=== PATIENT | female | born 1990 | race Caucasian/White ===

== ENCOUNTER 2016-12-16 06:15 | Inpatient (IN) | payer OTHER ==
[~2016-12-16] VITALS: Ht 160 cm; Wt 80.7 kg
[2016-12-16] VITALS (101 sets, daily range): BP systolic 94–144; BP diastolic 49–97; PULSE 81–255; RESP 16–22; TEMP 97.6–99.1; O2SAT 96–99
[~2016-12-16 06:15] MED LIST: AMOX500T2 PO; MMW SS; Z.0.BCPILL PO; ZITH250T PO
[2016-12-16 07:45] LABS: AUTOMATED NEUTROPHIL # 13.3 TH/MM3 (1.8-7.7); BASOPHIL % 0.2 % (0.0-2.0); EOSINOPHIL # 0.1 TH/MM3 (0-0.4); EOSINOPHIL % 0.5 % (0.0-4.0); HEMATOCRIT 35.5 % (35.0-46.0); HEMO FLAGS DIFF FINAL; LYMPH % 13.9 % (9.0-44.0); LYMPHOCYTE # 2.3 TH/MM3 (1.0-4.8); MEAN CELL VOLUME 76.4 FL (80.0-100.0); MEAN CORPUSCULAR HEMOGLOBIN 24.6 PG (27.0-34.0); MEAN CORPUSCULAR HGB CONC 32.3 % (32.0-36.0); NEUT % 80.4 % (16.0-70.0); PLATELET COUNT 280 TH/MM3 (150-450); RED BLOOD COUNT 4.65 MIL/MM3 (4.00-5.30); RED CELL DISTRIBUTION WIDTH 15.5 % (11.6-17.2); WHITE BLOOD COUNT 16.6 TH/MM3 (4.0-11.0)
[2016-12-16 07:47] LABS: BACTERIA, URINE RARE /hpf; BLOOD, URINE SMALL (NEG); COMMENT (UR) CULT NOT INDICATED; CULTURE IF INDICATED CULT NOT INDICATED; GLUCOSE,URINE NEG (NEG); KETONE, URINE NEG (NEG); MUCUS URINE FEW /lpf (OCC); NITRITE,URINE NEG (NEG); PH, URINE 6.5 (5.0-8.5); SQUAMOUS EPITHELIAL CELL URINE 3 /hpf (0-5); URINE COLOR YELLOW (YELLW/STRAW)
[2016-12-16] MEDS ORDERED: NS 1000 ML IV PRN (08:15)
[2016-12-16] MEDS ORDERED: PENICILLIN G POT 5,000,000 UNITS/NS 100 ML (Mini-Bag Plus) IV ONE ×2 (08:15)
[2016-12-16] MEDS ORDERED: LIDOCAINE HCL 1% 50 ML VIAL SQ PRN (08:15)
[2016-12-16] MEDS ORDERED: LACTATED RINGER'S 1000 ML BOLUS IV PRN (08:15)
[2016-12-16] MEDS ORDERED: NS 500 ML BOLUS IV PRN (08:15)
[2016-12-16] MEDS ORDERED: MINERAL OIL 10 ML VIAL TOPICAL PRN (08:15)
[2016-12-16] MEDS ORDERED: OXYTOCIN 30 UNITS 500ML PREMIX IV ONE (08:15)
[2016-12-16] MEDS ORDERED: CITRIC ACID-SODIUM CITRATE LIQ 30 ML UDC PO SCH (08:15)
[2016-12-16] MEDS ORDERED: LIDOCAINE HCL 1% 50 ML VIAL I-DERMAL PRN (08:15)
[2016-12-16] MEDS: LACTATED RINGER'S 1000 ML IV SCH ×2 (08:17→13:26)
[2016-12-16] MEDS ORDERED: OXYTOCIN 30 UNITS/NS 500ML PREMIX IV SCH (09:15)
[2016-12-16] MEDS ORDERED: fentaNYL 2MCG-BUPIV 0.125% INJ 100 ML ONE (12:02)
[2016-12-16] MEDS: PENICILLIN G POT 2,500,000 UNITS/NS 100 ML IV SCH ×4 (13:26→16:57)
[2016-12-16] MEDS ORDERED: fentaNYL 2MCG-BUPIV 0.125% 100 ML EPIDURAL SCH (13:45)
[2016-12-16] MEDS ORDERED: ePHEDrine/NS 25 MG/5 ML SYR IV PRN (13:45)
[2016-12-16] MEDS ORDERED: NO SYSTEM NARCOTICS PRN (13:45)
[2016-12-16] MEDS ORDERED: DO NOT ADMINISTER ANTICOAGULANTS PRN (13:45)
[2016-12-16] MEDS ORDERED: ceFAZolin INJ 1,000 MG VIAL ONE (17:46)
[2016-12-16] MEDS ORDERED: OXYTOCIN 10 UNIT/ML AMP ONE (17:46)
[2016-12-16] MEDS ORDERED: EPIDURAL-NO SYSTEMIC NARCOTICS PRN (18:30)
[2016-12-16] MEDS ORDERED: EPIDURAL-DO NOT ADMINISTER ANTICOAGULANTS PRN (18:30)
[2016-12-16] MEDS ORDERED: EPIDURAL-NALOXONE HCL 0.4 MG/ML AMP IV PRN (18:30)
[2016-12-16] MEDS ORDERED: EPIDURAL-DIPHENHYDRAMINE HCL 50 MG CAP PO PRN (18:30)
[2016-12-16] MEDS ORDERED: EPIDURAL-DIPHENHYDRAMINE HCL 50 MG/ML VIAL IV PUSH PRN (18:30)
[2016-12-16] MEDS ORDERED: ACETAMINOPHEN 1000 MG/100 ML VIAL IV ONE (19:01)
[2016-12-16] MEDS ORDERED: DICLOFENAC SODIUM 37.5 MG/ML VIAL IV PUSH ONE (19:02)
[2016-12-16] MEDS ORDERED: ONDANSETRON HCL 4 MG/2 ML VIAL ONE (19:18)
[2016-12-16] MEDS ORDERED: MORPHINE SULFATE 4 MG/ML INJ ONE (19:18)
[2016-12-16] MEDS ORDERED: MORPHINE SULFATE PF 5 MG/10 ML VIAL ONE (19:18)
[2016-12-16] MEDS ORDERED: ONDANSETRON HCL 4 MG/2 ML VIAL IV PUSH PRN (19:30)
[2016-12-16] MEDS ORDERED: OXYTOCIN 30 UNITS-500ML PREMIX 500 ML IV ONE ×2 (19:30)
[2016-12-16] MEDS ORDERED: SODIUM CHLORIDE 0.9% FLUSH 10 ML FLUSH IV FLUSH PRN (19:30)
[2016-12-16] MEDS: LACTATED RINGER'S 1000 ML INJ 1,000 ML IV SCH (19:39)
[2016-12-16] MEDS ORDERED: SODIUM CHLORIDE 0.9% FLUSH 10 ML FLUSH IV FLUSH SCH (21:00)
[2016-12-17 01:30] VITALS: BP 118/70; PULSE 108; RESP 18; TEMP 98
[2016-12-17] MEDS: LACTATED RINGER'S 1000 ML INJ 1,000 ML IV SCH (01:41)
[2016-12-17 05:30] VITALS: BP 114/68; PULSE 111; RESP 18; TEMP 99
[2016-12-17] MEDS ORDERED: OXYTOCIN 30 UNITS-500ML PREMIX 500 ML IV PRN (05:30)
[2016-12-17 05:58] LABS: AUTOMATED NEUTROPHIL # 19.8 TH/MM3 (1.8-7.7); BASOPHIL % 0.1 % (0.0-2.0); EOSINOPHIL % 0.1 % (0.0-4.0); HEMATOCRIT 24.2 % (35.0-46.0); HEMO FLAGS DIFF FINAL; LYMPH % 5.9 % (9.0-44.0); LYMPHOCYTE # 1.3 TH/MM3 (1.0-4.8); MEAN CELL VOLUME 76.1 FL (80.0-100.0); MEAN CORPUSCULAR HEMOGLOBIN 25.4 PG (27.0-34.0); MEAN CORPUSCULAR HGB CONC 33.4 % (32.0-36.0); MONO % 5.1 % (0.0-8.0); NEUT % 88.8 % (16.0-70.0); PLATELET COUNT 210 TH/MM3 (150-450); RED BLOOD COUNT 3.19 MIL/MM3 (4.00-5.30); RED CELL DISTRIBUTION WIDTH 15.2 % (11.6-17.2); WHITE BLOOD COUNT 22.3 TH/MM3 (4.0-11.0)
[2016-12-17] MEDS: oxyCODONE/ACETAMINOPHEN 5 MG/325 MG TAB PO PRN ×4 (06:11→20:16)
[2016-12-17] MEDS: IBUPROFEN 600 MG TAB PO PRN ×3 (06:11→20:15)
[2016-12-17 08:00] VITALS: BP 116/64; PULSE 125; RESP 14; TEMP 98.9
[2016-12-17 11:07] VITALS: BP 111/67; PULSE 140; RESP 18; TEMP 98.3
[2016-12-17 13:00] VITALS: BP 106/61; PULSE 109; RESP 16; TEMP 98.1
--- NOTE | 2016-12-17 13:28 | MP ---
cc: Ortiz MAGALLANES DATE OF SURGERY 12/16/2016 PREOPERATIVE DIAGNOSIS 1. Failure to progress 2. Intrauterine at term. POSTOPERATIVE DIAGNOSIS 1. Failure to progress 2. Intrauterine at term. PROCEDURE Primary low transverse section ANESTHESIA Epidural SURGEON Ortiz Magallanes MD FINDINGS A healthy male . Normal uterus, normal tubes, normal ovaries, normal cul-de-sacs anterior and posterior. Normal viable male with a weight 9 pounds 4 ounces, 's 9/9. COMPLICATIONS None COUNTS Correct ESTIMATED BLOOD LOSS 500 cc FLUIDS Crystalloid CONDITION The patient tolerated the procedure well and went to the recovery room in good condition. INDICATIONS FOR THE PROCEDURE This lady came in the morning at 3 cm. We ruptured her membranes and began to augment her labor. She moved to 4 cm fairly well. She had several decelerations which were several minutes long, however, one was right after the epidural. The second one we stopped the Pitocin and then restarted it. For the last six hours. she moved her cervix 1 cm despite fairly adequate contractions. She did have a dysfunctional pattern. After discussion of the risks and benefits of a section and because she had not moved her cervix and she began becoming warm inside, I was concerned about infection, we decided to proceed with the . PROCEDURE IN DETAIL The patient was taken to the operating room, identified by name band and verbally. The time out was done and patient was prepped and draped in the usual sterile fashion for section. A Pfannenstiel incision was made, carried down to the fascia. The fascia was taken off the rectus muscle by blunt and sharp dissection. The rectus muscles were spread bluntly and the peritoneum entered under direct vision without difficulty. The incision was extended and a bladder blade was placed. A bladder flap was created in the usual fashion and the uterus was incised transversely along the lower uterine segment. Once the uterine cavity was entered, clear fluid was noted. The baby's head was very low in the pelvis after pushing for two hours and the vertex was grasped. With fundal pressure, we could not quite get the head to deliver, so we used a suction device which the baby delivered easily. The hypopharynx and nasopharynx were suctioned and the remainder of the was delivered without difficulty. The cord doubly clamped and cut and handed to the resuscitation team who was present. The cord blood was obtained and the placenta was delivered manually. The uterus was curettaged twice with a wet lap and the uterine incision was repaired with 0 Vicryl in a running locking fashion in two layers, the second layer imbricating the first. Once this had been accomplished, all incisions were carefully inspected. Hemostasis was excellent. The uterus was delivered back into the abdomen and the gutters were cleaned of blood and debris. The rectus muscles were reapproximated with 0 Vicryl in a running fashion and the fascia was repaired with 0 Vicryl in a running fashion bilaterally. The subcu was repaired with two layers of 3-0 Vicryl and the skin was repaired with a 4-0 Monocryl in a subcuticular fashion. The wound was sterilely dressed. She tolerated the procedure well and went to the recovery room in satisfactory condition. R. MD ELIAN Delgado/SEMAJ /7:29 PM /1:26 PM
--- NOTE | 2016-12-17 13:33 | HHI.OB ---
Subjective Post Operative Day: 1 Objective Vitals/I&O Vital Signs Date Time Temp Pulse Resp B/P Pulse Ox O2 Delivery O2 Flow Rate FiO2 12/17/16 11:07 98.3 140 18 111/67 12/17/16 08:00 98.9 125 14 116/64 12/17/16 05:30 99.0 111 18 114/68 12/17/16 01:30 108 18 118/70 12/17/16 01:30 98.0 12/16/16 22:00 99.1 12/16/16 22:00 103 16 123/64 12/16/16 20:30 98.2 12/16/16 20:30 102/58 12/16/16 20:29 96 12/16/16 20:27 97 12/16/16 20:27 19 12/16/16 20:08 110 20 108/61 96 12/16/16 19:56 114 12/16/16 19:56 22 97 12/16/16 19:55 108/65 12/16/16 19:42 119 20 107/65 99 12/16/16 19:22 99 12/16/16 19:21 115 18 106/56 12/16/16 19:21 97.9 12/16/16 17:40 131 12/16/16 17:35 127 12/16/16 17:30 115 131/79 12/16/16 17:30 109 12/16/16 17:25 106 12/16/16 17:20 112 12/16/16 17:15 108 12/16/16 17:10 114 12/16/16 17:05 118 12/16/16 17:00 134 12/16/16 17:00 121 144/78 12/16/16 16:55 107 12/16/16 16:53 18 12/16/16 16:50 102 12/16/16 16:45 103 12/16/16 16:41 100 130/67 17 16:40 117 17 16:35 111 17 16:30 106 123/76 17 16:30 108 17 16:25 111 17 16:20 113 17 16:15 118 17 16:10 109 12/16/16 16:05 114 12/16/16 16:03 18 12/16/16 16:02 105 128/77 12/16/16 16:00 112 12/16/16 15:58 99.0 12/16/16 15:55 106 12/16/16 15:50 104 12/16/16 15:45 105 12/16/16 15:40 110 12/16/16 15:35 104 12/16/16 15:30 105 115/61 12/16/16 15:30 107 12/16/16 15:25 100 12/16/16 15:20 114 12/16/16 15:15 106 12/16/16 15:10 114 12/16/16 15:05 94 12/16/16 15:00 97 104/54 12/16/16 15:00 88 12/16/16 14:55 99 12/16/16 14:55 96 96/75 12/16/16 14:54 18 12/16/16 14:50 95 12/16/16 14:45 99 12/16/16 14:40 97 12/16/16 14:35 97 12/16/16 14:30 81 12/16/16 14:30 98 110/70 12/16/16 14:27 97 102/57 12/16/16 14:08 99 112/58 12/16/16 14:00 112 111/57 12/16/16 13:35 108 100/52 12/16/16 13:31 154 116/78 12/16/16 13:27 18 12/16/16 13:25 110 107/49 12/16/16 13:20 113 120/90 12/16/16 13:20 150 Result Diagram: 12/17/16 0529 Objective Remarks GENERAL: Well-nourished, well-developed patient. CARDIOVASCULAR: Regular rate and rhythm without murmurs, gallops, or rubs. RESPIRATORY: Breath sounds equal bilaterally. No accessory muscle use. ABDOMEN/GI: Abdomen soft, non-tender, bowel sounds present. Incision: primapore dressing Clean, dry and intact. Fundus: Firm, non-tender at umbilicus. GENITOURINARY: Light to moderate bleeding. EXTREMITIES: No cyanosis or edema, non-tender, without signs of DVT. Medications and IVs Current Medications Medications (Trade) Dose Ordered Sig/Karena Route Start Time Stop Time Status Last Admin (Lr 1000 ml Inj) 1,000 ml @ 100 mls/hr Q10H IV 12/17/16 00:19 12/17/16 20:18 12/17/16 01:41 (NS Flush) 2 ml BID IV FLUSH 12/16/16 21:00 (NS Flush) 2 ml UNSCH PRN IV FLUSH 12/16/16 19:30 (Mylicon Chew) 80 mg QID PRN PO 12/16/16 19:30 (Motrin) 600 mg Q6H PRN PO 12/16/16 19:30 12/17/16 06:11 (Percocet 5-325 Mg) 1 tab Q4H PRN PO 12/16/16 19:30 12/17/16 06:11 (Percocet 5-325 Mg) 2 tab Q4H PRN PO 12/16/16 19:30 (Aleah-Colace) 2 tab Q12H PRN PO 12/16/16 19:30 (M-M-R Ii Inj) 0.5 ml ONCE ONCE SQ 12/17/16 16:00 12/17/16 16:01 (Boostrix Inj) 0.5 ml ONCE ONCE IM 12/17/16 16:00 12/17/16 16:01 (Zofran Inj) 4 mg Q6H PRN IV PUSH 12/16/16 19:30 Miscellaneous Information NO SYSTEMIC NARCOTICS TO BE GIVEN FO... UNSCH PRN .XX 12/16/16 18:30 12/17/16 18:29 (Narcan Inj) 0.4 mg UNSCH PRN IV 12/16/16 18:30 12/17/16 18:29 (Benadryl Inj) 25 mg Q6H PRN IV PUSH 12/16/16 18:30 12/17/16 18:29 (Benadryl) 50 mg Q6H PRN PO 12/16/16 18:30 12/17/16 18:29 Miscellaneous Information ALL NURSING DEPARTMENTS UNSCH PRN .XX 12/16/16 18:30 12/17/16 18:29 Assessment/Plan Problem List: (1) S/P primary low transverse Plan: routine (2) Tachycardia Plan: monitor vs/tsh (3) Anemia Plan: vital signs/ monitor symptoms Assessment and Plan POD #1 primary c section pt doing well pain well controlled with oral pain mediation pt anemic pt tachycardic on admission, she has been afebrile denies sob, dizziness or chest pain at rest and with ambulation will order a repeat cbc/tsh routine Discharge Planning consider dc in 2 days Tricia Moreno Dec 17, 2016 13:33
[2016-12-17] MEDS ORDERED: IBUP-232 PO (14:15)
[2016-12-17] MEDS ORDERED: OXYC1TAB63 PO (14:15)
[2016-12-17] MEDS: SIMETHICONE 80 MG CHEWABLE TAB PO PRN (14:59)
[2016-12-17] MEDS: DOCUSATE SODIUM 50 MG/SENNA 8.6 MG TAB PO PRN (14:59)
[2016-12-17] MEDS ORDERED: MEASLES, MUMPS, RUBELLA VACCINE 0.5 ML VIAL SQ ONE (16:00)
[2016-12-17] MEDS ORDERED: DIPHTH/TETANUS/ACEL PERTUSSIS (BOOSTER) 0.5 ML VIAL/PFS IM ONE (16:00)
[2016-12-17 20:15] VITALS: BP 111/69; PULSE 125; RESP 18; TEMP 98
[2016-12-18] VITALS (9 sets, daily range): BP systolic 108–121; BP diastolic 55–67; PULSE 101–120; RESP 14–18; TEMP 97.5–98.6
[2016-12-18] MEDS: oxyCODONE/ACETAMINOPHEN 5 MG/325 MG TAB PO PRN ×5 (00:50→20:01)
[2016-12-18] MEDS: DOCUSATE SODIUM 50 MG/SENNA 8.6 MG TAB PO PRN ×2 (02:38→20:01)
[2016-12-18] MEDS: IBUPROFEN 600 MG TAB PO PRN ×4 (02:38→22:31)
[2016-12-18 05:58] LABS: AUTOMATED NEUTROPHIL # 13.9 TH/MM3 (1.8-7.7); BASOPHIL % 0.1 % (0.0-2.0); EOSINOPHIL # 0.1 TH/MM3 (0-0.4); EOSINOPHIL % 0.8 % (0.0-4.0); HEMATOCRIT 22.4 % (35.0-46.0); HEMO FLAGS DIFF FINAL; LYMPH % 12.3 % (9.0-44.0); LYMPHOCYTE # 2.1 TH/MM3 (1.0-4.8); MEAN CORPUSCULAR HEMOGLOBIN 25.2 PG (27.0-34.0); MEAN CORPUSCULAR HGB CONC 32.7 % (32.0-36.0); MONO % 5.9 % (0.0-8.0); NEUT % 80.9 % (16.0-70.0); PLATELET COUNT 218 TH/MM3 (150-450); RED BLOOD COUNT 2.91 MIL/MM3 (4.00-5.30); RED CELL DISTRIBUTION WIDTH 15.8 % (11.6-17.2); WHITE BLOOD COUNT 17.2 TH/MM3 (4.0-11.0)
[2016-12-18] MEDS: SIMETHICONE 80 MG CHEWABLE TAB PO PRN ×2 (09:09→22:31)
--- NOTE | 2016-12-18 10:28 | EKG ---
Date Performed: 12/18/2016 Time Performed: 08:43:37 PTAGE: 26 years EKG: SINUS TACHYCARDIA POSSIBLE RIGHT VENTRICULAR HYPERTROPHY ABNORMAL ECG NO PREVIOUS TRACING DOCTOR: Tanner Stark Interpretating Date/Time 12/18/2016 10:27:31
[2016-12-18] MEDS ORDERED: SODIUM CHLOR 0.9% 250 ML INJ 250 ML IV ONE (13:30)
--- NOTE | 2016-12-18 13:33 | HHI.OB ---
Subjective Post Operative Day: 2 Objective Vitals/I&O Vital Signs Date Time Temp Pulse Resp B/P Pulse Ox O2 Delivery O2 Flow Rate FiO2 12/18/16 08:00 97.5 102 14 108/67 12/17/16 20:15 98.0 125 18 111/69 Result Diagram: 12/18/16 0501 Objective Remarks GENERAL: Well-nourished, well-developed patient. CARDIOVASCULAR: Regular rate and rhythm without murmurs, gallops, or rubs. RESPIRATORY: Breath sounds equal bilaterally. No accessory muscle use. ABDOMEN/GI: Abdomen soft, non-tender, bowel sounds present. Incision: dressing Clean, dry and intact. Fundus: Firm, non-tender at umbilicus. GENITOURINARY: Light to moderate bleeding. EXTREMITIES: No cyanosis , + 2 pitting edema, non-tender, without signs of DVT. Medications and IVs Current Medications Medications (Trade) Dose Ordered Sig/Karena Route Start Time Stop Time Status Last Admin (NS Flush) 2 ml BID IV FLUSH 12/16/16 21:00 (NS Flush) 2 ml UNSCH PRN IV FLUSH 12/16/16 19:30 (Mylicon Chew) 80 mg QID PRN PO 12/16/16 19:30 12/18/16 09:09 (Motrin) 600 mg Q6H PRN PO 12/16/16 19:30 12/18/16 09:09 (Percocet 5-325 Mg) 1 tab Q4H PRN PO 12/16/16 19:30 12/17/16 14:59 (Percocet 5-325 Mg) 2 tab Q4H PRN PO 12/16/16 19:30 12/18/16 09:09 (Aleah-Colace) 2 tab Q12H PRN PO 12/16/16 19:30 12/18/16 02:38 (Zofran Inj) 4 mg Q6H PRN IV PUSH 12/16/16 19:30 Assessment/Plan Problem List: (1) S/P primary low transverse Plan: routine (2) Tachycardia Plan: ekg/ (3) Anemia Plan: transfusion Assessment and Plan POD #2 primary c section pt doing well, c/o losing her voice pain well controlled with oral pain mediation pulse at rest 100/ but 120 upon standing denies sob, dizziness or chest pain at rest or with ambulation hgb 7.3 discussed the benefit of transfusion, will order 2 units infant states infant doing better, still in nicu, pt pumping routine post op care Discharge Planning consider dc tomorrow Attending Attestation discussed care with Tricia Ricci Dec 18, 2016 13:33
--- NOTE | 2016-12-18 13:38 | HHI.DCPOC ---
Discharge Care Plan Diagnosis: (1) Anemia (2) Tachycardia (3) S/P primary low transverse Your Health Problems Are: delivery Report Symptoms to Your Doctor -Temperature above 100.5 degrees -Redness, of incision or excessive or foul smelling drainage -Unusual pain or calf pain -Increased vaginal bleeding -Painful or difficulty urinating -Feelings of extreme sadness or anxiety after 2 weeks Goals to Promote Your Health * To prevent worsening of your condition and complications * To maintain your health at the optimal level Directions to Meet Your Goals Take your medications as prescribed Follow your dietary instruction Follow activity as directed Ensure plenty of rest for recovery Drink fluids for hydration Keep your appointments as scheduled Take your immunizations and boosters as scheduled If your symptoms worsen call your PCP, if no PCP go to Urgent Care Center or Emergency Room Smoking is Dangerous to Your Health. Avoid second hand smoke Call the 24-hour crisis hotline for domestic abuse at Tricia Moreno Dec 18, 2016 13:38
[2016-12-18] MEDS ORDERED: diphenhydrAMINE HCL 25 MG CAP PO PRN (15:00)
[2016-12-18] MEDS ORDERED: ACETAMINOPHEN 325 MG TAB PO PRN (15:00)
[2016-12-19] MEDS: oxyCODONE/ACETAMINOPHEN 5 MG/325 MG TAB PO PRN ×4 (00:08→13:59)
[2016-12-19] MEDS: IBUPROFEN 600 MG TAB PO PRN ×2 (06:12→13:59)
[2016-12-19 07:49] LABS: AUTOMATED NEUTROPHIL # 9.6 TH/MM3 (1.8-7.7); BASOPHIL % 0.2 % (0.0-2.0); EOSINOPHIL # 0.2 TH/MM3 (0-0.4); EOSINOPHIL % 1.4 % (0.0-4.0); HEMATOCRIT 27.1 % (35.0-46.0); HEMO FLAGS DIFF FINAL; LYMPH % 17.4 % (9.0-44.0); LYMPHOCYTE # 2.2 TH/MM3 (1.0-4.8); MEAN CELL VOLUME 76.5 FL (80.0-100.0); MEAN CORPUSCULAR HEMOGLOBIN 25.3 PG (27.0-34.0); MEAN CORPUSCULAR HGB CONC 33.1 % (32.0-36.0); MONO % 5.7 % (0.0-8.0); NEUT % 75.3 % (16.0-70.0); PLATELET COUNT 234 TH/MM3 (150-450); RED BLOOD COUNT 3.55 MIL/MM3 (4.00-5.30); RED CELL DISTRIBUTION WIDTH 15.9 % (11.6-17.2); WHITE BLOOD COUNT 12.7 TH/MM3 (4.0-11.0)
[2016-12-19 08:30] VITALS: BP_SYST 108; BP_SYST 112; BP_DIAS 64; BP_DIAS 67; PULSE 84; PULSE 85; RESP 17; RESP 18; TEMP 97.9; TEMP 98.3
[2016-12-19] MEDS: DOCUSATE SODIUM 50 MG/SENNA 8.6 MG TAB PO PRN (09:47)
--- NOTE | 2016-12-19 11:09 | HHI.OB ---
Subjective Post Operative Day: 3 Remarks Pt feels markedly improved after blood transfusion. Objective Vitals/I&O Vital Signs Date Time Temp Pulse Resp B/P Pulse Ox O2 Delivery O2 Flow Rate FiO2 12/19/16 08:30 97.9 85 17 108/67 12/19/16 08:30 98.3 84 18 112/64 12/19/16 01:08 18 12/18/16 20:22 98.6 106 16 121/64 12/18/16 20:14 98.6 101 18 120/65 12/18/16 20:10 97.9 103 18 120/66 12/18/16 19:50 98.6 101 18 120/65 12/18/16 17:25 97.9 111 16 119/55 12/18/16 17:04 98.3 115 16 116/59 12/18/16 16:59 98.3 115 14 116/59 12/18/16 15:00 120 Result Diagram: 12/19/16 0717 Objective Remarks GENERAL: Well-nourished, well-developed patient. CARDIOVASCULAR: Regular rate and rhythm without murmurs, gallops, or rubs. RESPIRATORY: Breath sounds equal bilaterally. No accessory muscle use. ABDOMEN/GI: Abdomen soft, non-tender, bowel sounds present. Incision: Clean, dry and intact. Fundus: Firm, non-tender at umbilicus. GENITOURINARY: Light to moderate bleeding. EXTREMITIES: No cyanosis , + 2 pitting edema, non-tender, without signs of DVT. Medications and IVs Current Medications Medications (Trade) Dose Ordered Sig/Karena Route Start Time Stop Time Status Last Admin (NS Flush) 2 ml BID IV FLUSH 12/16/16 21:00 (NS Flush) 2 ml UNSCH PRN IV FLUSH 12/16/16 19:30 (Mylicon Chew) 80 mg QID PRN PO 12/16/16 19:30 12/18/16 22:31 (Motrin) 600 mg Q6H PRN PO 12/16/16 19:30 12/19/16 06:12 (Percocet 5-325 Mg) 1 tab Q4H PRN PO 12/16/16 19:30 12/17/16 14:59 (Percocet 5-325 Mg) 2 tab Q4H PRN PO 12/16/16 19:30 12/19/16 09:47 (Aleah-Colace) 2 tab Q12H PRN PO 12/16/16 19:30 12/19/16 09:47 (Zofran Inj) 4 mg Q6H PRN IV PUSH 12/16/16 19:30 Assessment/Plan Problem List: (1) S/P primary low transverse Plan: routine (2) Tachycardia Plan: ekg/ (3) Anemia Plan: transfusion Assessment and Plan POD #3 primary c section pt doing well, pain well controlled with oral pain mediation Tachycardia and anemia yesterday, s/p 2 uprbc hgb from 7.3 to 9 infant doing better, still in nicu, pt pumping routine post op care Discharge Planning d/c today Celia Araujo MD Dec 19, 2016 11:09
[2016-12-19] MEDS: SIMETHICONE 80 MG CHEWABLE TAB PO PRN (15:21)
== END 2016-12-19 16:32 | disposition home or self-care (01) | DRG 766 ==
LOC: H2EA 06:15 → H1EA 21:04
PROVIDERS: ADMIT Obstetrics & Gynecology; ATTEND Obstetrics & Gynecology
PROC: 10D00Z1 Extraction of Products of Conception, Low, Open Approach (ICD-10-PCS; principal; 2016-12-16)
PROC: 10907ZC Drainage of Amniotic Fluid, Therapeutic from Products of Conception, Via Natural or Artificial Opening (ICD-10-PCS; 2016-12-16)
PROC: 3E0S3CZ (ICD-10-PCS; 2016-12-16)
PROC: 00HU33Z Insertion of Infusion Device into Spinal Canal, Percutaneous Approach (ICD-10-PCS; 2016-12-16)
PROC: 30233N1 Transfusion of Nonautologous Red Blood Cells into Peripheral Vein, Percutaneous Approach (ICD-10-PCS; 2016-12-18)
DX: O62.2 Other uterine inertia (principal); O90.81 Anemia of the puerperium; O76 Abnormality in fetal heart rate and rhythm complicating labor and delivery; O75.89 Other specified complications of labor and delivery; R00.0 Tachycardia, unspecified; Z37.0 Single live birth; Z3A.00 Weeks of gestation of pregnancy not specified
CPT/HCPCS: 36430; 59025; 81001; 84443; 85025; 86850; 86900; 86901; 86920; 90715; 93005; J0131; J0690; J1130; J2270; J2274; J2405; J2540; J2590; J3010; J7120; P9016